=== PATIENT | male | born 1995 | race Two or more races ===

== ENCOUNTER → 2024-12-05 | Outpatient (CLI) | payer MEDICAID, SELFPAY ==
--- NOTE | 2024-12-05 10:45 | XR_ITS ---
Examination: Abdomen sonogram, complete Date and time of exam: December 05, 2024 1048 hours INDICATIONS: Elevated liver function tests on laboratory examination performed 6 months ago. Technique: Multiple real-time grayscale transabdominal sonographic images of the abdomen have been obtained. Findings: Normal gallbladder Normal common bile duct 0.3 cm Pancreatic head 2.1 cm Aorta not enlarged Liver 14.0 cm fatty infiltration Normal hepatopedal portal venous flow Patent IVC Right kidney 11.3 cm renal cortex 1.4 cm Left kidney 12.2 cm cortex 1.8 cm Mild renal parenchymal scar formation Spleen 10.5 cm IMPRESSION: Normal gallbladder Fatty liver Mild bilateral renal parenchymal scar formation
== END | disposition home or self-care (01) ==
PROVIDERS: PCP Physician Assistant; Referring Provider Physician Assistant; Visit Provider Physician Assistant
DX: K76.0 Fatty (change of) liver, not elsewhere classified (principal); N28.89 Other specified disorders of kidney and ureter
CPT/HCPCS: 76700